=== PATIENT | male | born 1980 | race Caucasian/White ===

== ENCOUNTER → 2023-03-08 | Emergency (ER) | payer OTHER ==
[~2023-03-08] VITALS: Ht 180.3 cm; Wt 136.0 kg
[2023-03-08 08:13] VITALS: TEMP 96.8
[2023-03-08 09:33] VITALS: BP 122/91; PULSE 66; RESP 16; O2SAT 100
== END | disposition home or self-care (01) ==
LOC: ER 06:45
DX: M54.59 Other low back pain (principal); M25.551 Pain in right hip
CPT/HCPCS: 99284